=== PATIENT | male | born 1955 | race African-American/Black ===

== ENCOUNTER 2023-08-20 12:49 | Outpatient (AMB) | payer MEDICARE, MEDICAID, SELFPAY ==
--- NOTE | 2023-08-20 12:51 | A.OFFPC_ITS ---
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 Transferring care from Dr NATE Morales ([facility]). Medical records have not been requested and have not received. Online Content Editor Required: No Steam Meter Reader: Not Required per policy Accompanied by: Self / Same As Patient Allergies No Known Allergies Allergy (Verified 08/20/23 13:10) Medication List - Last Reconciled 08/20/23 by JAMES Joshua loratadine 5 mg PO DAILY Tobacco use date assessed: 08/20/23 Fall risk assessment: No Falls in past year Last assessed Fall Risk: 08/20/23 Dental Screening Dental Screen Date: 08/20/23 Did you have a dental visit in the last 12 months?: No Did you have a dental problem in the last 6 months where you did not have access to dental care?: No Was dental information given to patient?: No HPI HPI Comments History of Present Illness Details 68-year-old male new patient presents to day to establish care. Patient reports chronic low back pain x 3 years. Patient states 3 years ago he was trying to pick his mother up off the floor any at her dad's back and he has been having chronic pain ever since. Patient reports 8/10 chronic lumbar back pain. States previous PCP had him on oxycodone 5 mg tablets TID, last prescribed over 3 years ago. Patient states Advil does not work. Patient also reports bilateral hand pain in his joints, unable to make fists and has difficulty grasping things. Lastly patient reports bilateral foot numbness ongoing x6 months. Denies any recent lab work. Dr. Morales; Protection previous pcp last seen 3 years ago. [facility] Surgical History (Updated 08/20/23 @ 13:05 by ETHAN Estrada) History of knee surgery Family History (Updated 08/20/23 @ 13:14 by JAMES Joshua) Mother Cancer Social History (Updated 08/20/23 @ 13:15 by JAMES Joshua) Housing: Apartment Alcohol intake: current Alcohol intake frequency: a few times a week Alcohol type: beer Patient Tobacco Use Status: Current everyday Tobacco user Tobacco use type: Cigar Cigarettes Per Day: 3 e-Cigarette/Vaping Use: Never Used Second Hand Smoke Exposure: Yes Substance Use Type: Marijuana service: No Current occupational status: disabled Cognitive needs: No Hearing needs: No Vision needs: Yes (Readers) Questionnaire PHQ-9 Over the last 2 weeks, how often have you been bothered by any of the following problems? 1. Little interest or pleasure in doing things: not at all 2. Feeling down, depressed, or hopeless: not at all 3. Trouble falling or staying asleep, or sleeping too much: not at all 4. Feeling tired or having little energy: not at all 5. Poor appetite or overeating: not at all 6. Feeling bad about yourself - or that you are a failure or have let yourself or your family down: not at all 7. Trouble concentrating on things, such as reading the newspaper or watching television: not at all 8. Moving or speaking so slowly that other people could have noticed. Or the opposite - being so fidgety or restless that you have been moving around a lot more than usual: not at all 9. Thoughts that you would be better off or of hurting yourself in some way: not at all Total score: 0 Depression Screening Interpretation: Negative Depression Screening Done: Yes 62058 - PHQ-9 Billing: Yes Source: Developed by Drs. Denilson Mathews, Malika Dickens, René Reis and colleagues, with an educational mar from [employer]. Thrive Questionnaire Date Thrive assessed: 08/20/23 I am a: Patient What is your living situation today?: I have a steady place to live Within the past 12 months, did the food you bought not last and you didn't have the money to get more?: Never true Within the past 12 months, did you worry whether your food would run out before you got money to buy more?: Never true Do you have trouble paying for medicines?: No Do you have trouble getting transportation to medical appointments?: No Do you have trouble paying your heating and electricity bill?: Yes Do you have trouble taking care of your child, family member or friend?: No Do you have trouble with day-to-day activities such as bathing, preparing meals, shopping, managing finances, etc.?: No Are you currently unemployed and looking for a job?: No Are you interested in more education?: No Currently or been in a relationship where the following occur: no concerns reported AUDIT C Alcohol Use Questionnaire (AUDIT-C) 1. How often do you have a drink containing alcohol?: Never Total Score: 0 KEYUR-7 AMB Questionnaire KEYUR-7 Date KEYUR - 7 assessed: 08/20/23 Feeling nervous, anxious, or on edge: 0 = Not at all Not being able to stop or control worryin = Not at all Worrying too much about different things: 0 = Not at all Trouble relaxin = Not at all Being so restless that it is hard to sit still: 0 = Not at all Becoming easily annoyed or irritable: 0 = Not at all Feeling afraid as if something awful might happen: 0 = Not at all Total KEYUR-7 score (0-4 normal; 5-9 mild; 10-14 moderate; 15-21 severe): 0 Source: Developed by Drs. Denilson Mathews, Malika Dickens, René Reis and colleagues, with an educational mar from [employer]. KEYUR-7 Assessment Billing KEYUR-7 Assessment Tool: KEYUR-7 Assessment 11831 Review of Systems Const Denies chills, Denies fatigue, Denies fever(s) and Denies poor appetite Eyes Denies no additional complaints ENT Reports Normal hearing present Card Denies chest pain, Denies syncope, Denies rapid heart rate and Denies dyspnea Resp Denies cough and Denies dyspnea GI Denies change in stool character, Denies constipation, Denies diarrhea, Denies nausea and Denies vomiting Denies dysuria, Denies urinary frequency and Denies urinary urgency Musc Reports back pain and Reports numbness (Bilateral feet) Neuro Reports Normal hearing present, Denies confusion, Denies syncope and Reports numbness (Bilateral feet) Psych Denies confusion Endo Denies fatigue Physical exam (Primary Care) Vital Signs: Last Vital Signs Pulse 63 08/20/23 12:53 BP 118/74 08/20/23 12:53 Pulse Ox 99 08/20/23 12:53 Oxygen Delivery Method Room Air 08/20/23 12:53 BMI result Body Mass Index 21.8 Tobacco/Smoking Status: Tobacco use Status Tobacco use date assessed 08/20/23 08/20/23 13:08 Patient Tobacco Use Status Current everyday Tobacco 08/20/23 13:15 Tobacco use type Cigar 08/20/23 13:15 e-Cigarette/Vaping Use Never Used 08/20/23 13:15 PHQ-9: PHQ-9 Score PHQ-9: Total score 0 08/20/23 13:18 Depression Screening Interpretation: Negative Thrive Assessment: Date of Thrive Assessment Date Thrive assessed 08/20/23 08/20/23 13:08 Currently or been in a relationship where the following occur: no concerns reported Const General: No confusion Orientation/consciousness: No confusion Neuro General: No confusion Cranial nerves: Yes Normal hearing present Assessment and Plan Assessment & Plan (1) Pain in both hands: Code(s): M79.641 - Pain in right hand; M79.642 - Pain in left hand Plan: Given patient experiencing bilateral and pain specifically in the joints of the hand will draw CRP, ESR rheumatoid factor and SANTANA to further evaluate for autoimmune cause. (2) Numbness and tingling of both feet: Code(s): R20.0 - Anesthesia of skin; R20.2 - Paresthesia of skin Plan: Will draw fasting glucose and hemoglobin A1c to further evaluate for diabetes (3) Chronic low back pain: Code(s): M54.50 - Low back pain, unspecified; G89.29 - Other chronic pain Plan: Patient made aware we will not be initiating patient on narcotic treatmet, ibuprofen 600 mg sent to patient's pharmacy patient advised to take medication with food to prevent GI upset, Lidoderm patches sent as well. Lumbar spine x-ray ordered and referral entered to pain management. Plan Follow-up in 4 months for physical exam Orders: Orders Comprehensive [place]. Panel Fast Today R20.0 - Anesthesia of skin, R20.2 - Paresthesia of skin C Reactive Protein Today M79.641 - Pain in right hand, M79.642 - Pain in left hand TSH reflex Free T4 Today Z13.29 - Encounter for screening for other suspected endocrine disorder Rheumatoid Factor Today M79.641 - Pain in right hand, M79.642 - Pain in left hand XR lumbar spine 2-3V Today G89.29 - Other chronic pain, M54.50 - Low back pain, unspecified SANTANA Reflex Titer and Pattern Today M25.50 - Pain in unspecified joint, M79.641 - Pain in right hand, M79.642 - Pain in left hand Complete Blood Count Auto Diff Today Z13.0 - Encounter for screening for diseases of the blood and blood-forming organs and certain disorders involving the immune mechanism Lipid Panel Today Z13.220 - Encounter for screening for lipoid disorders Erythrocyte Sedimentation Rate Today M79.641 - Pain in right hand, M79.642 - Pain in left hand Hemoglobin A1c Today R20.0 - Anesthesia of skin, R20.2 - Paresthesia of skin Referrals Pain Management Referral G89.29 - Other chronic pain, M54.50 - Low back pain, unspecified Medications: New ibuprofen 600 mg PO Q8H PRN 30 tabs 0RF pain G89.29 - Other chronic pain, M54.50 - Low back pain, unspecified lidocaine 5% (Lidoderm) leave on most painful area for up to 12 hrs 1 patch topical DAILY 15 ea 0RF Coding Level of Care Code New Pt Level 4 (19526) Diagnoses Pain in both hands M79.641; M79.642 Numbness and tingling of both feet R20.0; R20.2 Chronic low back pain M54.50; G89.29 Additional Codes KEYUR-7 Assessment Billing - KEYUR-7 Assessment Tool: KEYUR-7 Assessment 05615 ([id number])
[2023-08-20 12:53] VITALS: BP 118/74; PULSE 63; O2SAT 99; BMI 21.8
== END 2023-08-20 13:26 | disposition home or self-care (01) ==
PROVIDERS: Visit Provider Nurse Practitioner Family
DX: M79.641 Pain in right hand (principal); M79.642 Pain in left hand; R20.0 Anesthesia of skin; R20.2 Paresthesia of skin; M54.50 Low back pain, unspecified; G89.29 Other chronic pain
CPT/HCPCS: 99204

== ENCOUNTER 2023-12-22 13:17 | Outpatient (REF) | payer MEDICARE, MEDICAID, SELFPAY ==
[2023-12-22 13:42] LABS: MANUAL DIFF FLAG NO
[2023-12-22 14:21] LABS: Basophils Absolute Auto 0.1 X10*3/uL (0.0-0.2); Eosinophils Absolute Auto 0.2 X10*3/uL (0.0-0.4); Eosinophils Percent Auto 3.9 % (0-4); Hematocrit 39.4 % (42.0-52.0); Hemoglobin 14.1 g/dl (14.0-18.0); Imm Gran Abs Auto 0.01 X10*3/uL (0.00-0.03); Imm Gran Pct Auto 0.2 % (0.0-0.4); Lymphocytes Absolute Auto 2.5 X10*3/uL (1.2-4.9); Lymphocytes Percent Auto 41.6 % (20-40); Mean Corpuscular HGB Conc 35.8 g/dl (31.0-36.0); Mean Corpuscular Hemoglobin 27.7 pg (27.0-33.0); Mean Corpuscular Volume 77.4 fL (80.0-98.0); Mean Platelet Volume 8.9 fL (9.4-12.4); Monocytes Absolute Auto 0.6 X10*3/uL (0.1-1.2); Monocytes Percent Auto 10.9 % (2-11); Neutrophils Absolute Auto 2.4 x10*3/uL (2.0-8.3); Neutrophils Percent Auto 41.4 % (45-73); Platelet Count 295 X10*3/uL (160-400); Red Blood Count 5.09 X10*6/uL (4.60-5.80); Red Cell Distribution Width 17.5 % (11.0-16.0); White Blood Count 5.9 X10*3/uL (4.8-10.8)
[2023-12-22 15:28] LABS: Alanine Aminotransferase 16 U/L (0-40); Albumin Level 4.2 g/dL (3.5-5.0); Alkaline Phosphatase 72 U/L (39-117); Anion Gap 12 (12-20); Aspartate Amino Transferase 14 U/L (5-37); Bilirubin Total 0.6 mg/dL (0.0-1.0); Blood Urea Nitrogen 16 mg/dL (9-16); Calcium 8.9 mg/dL (8.4-10.2); Carbon Dioxide 24 mmol/L (22-29); Chloride 107 mmol/L (96-108); Estimated Glomerular Filt Rate 49; Glucose Random 73 mg/dL (60-115); Potassium 4.5 mmol/L (3.3-5.1); Sodium 138 mmol/L (135-145); Total Protein 7.7 g/dL (6.5-8.0)
== END 2023-12-22 13:18 | disposition home or self-care (01) ==
LOC: HO.LAB 13:17
PROVIDERS: Absent Provider Nurse Practitioner Family; Visit Provider Internal Medicine
DX: Z01.818 Encounter for other preprocedural examination (principal); D64.9 Anemia, unspecified
CPT/HCPCS: 36415; 80053; 85025

== ENCOUNTER 2024-03-14 14:55 | Outpatient (AMB) | payer MEDICARE, MEDICAID, SELFPAY ==
--- NOTE | 2024-03-14 14:57 | MHC.PC.OV ---
Vital Signs 03/14/24 15:00 Height 5 ft 8 in Weight 146 lb 8 oz BMI 22.3 BP 100/66 Blood Pressure Location Lt brachial Position Sitting Pulse 65 Pulse Source Pulse Oximeter Pulse Oximetry (%) 98 Oxygen Delivery Method Room Air Intake Visit Reasons: annual exam Intake Note: Patient is here today for a physical. Bomb Technician Required: No Engineering Librarian: Not Required per policy Accompanied by: Self / Same As Patient Allergies No Known Allergies Allergy (Verified 03/14/24 15:25) Medication List - Last Reconciled 03/14/24 by Rafael Viera MD ibuprofen 600 mg PO Q8H PRN lidocaine 5% (Lidoderm) 1 patch topical DAILY loratadine 5 mg PO DAILY Tobacco use date assessed: 03/14/24 Fall risk assessment: No Falls in past year Last assessed Fall Risk: 03/14/24 Dental Screening Dental Screen Date: 03/14/24 Did you have a dental visit in the last 12 months?: No Did you have a dental problem in the last 6 months where you did not have access to dental care?: No Was dental information given to patient?: No HPI annual exam HPI Details Patient comes in today for his annual physical examination States that he continues to experience increased pain over his lower back - has chronic low back pain - and needs his Ibuprofen as well as his Loratadine Rx refilled He was previously referred to pain management for his low back pain but his referral ended up getting cancelled as it was notated that there were several attempts made to reach out to patient then unsuccessfully Patient states that he does not recall ever getting called up and states that the phone number listed in his record is his house phone and is active and current Would like to have pain management referral done again States that he feels okay otherwise He denies any headaches or dizziness Denies any chest pains, no increased SOB No nausea/vomiting, no abdominal pain No change in bowel habits noted He denies any acute urinary symptoms He did have some labs done back in December 2023 but these were non-fasting labs and are only partial labs States that he has never had a screening colonoscopy done by choice and his stance has not changed on this - he declines referral for a screening colonoscopy but is agreeable to getting Cologuard testing done [facility] Medical History (Updated 03/14/24 @ 16:46 by Rafael Viera MD) Chronic kidney disease, stage III (moderate) Allergic rhinitis Smoker Colonoscopy refused Insomnia Chronic low back pain Surgical History History of knee surgery Family History Mother Cancer Social History Housing: Apartment Alcohol intake: current Alcohol intake frequency: a few times a week Alcohol type: beer Patient Tobacco Use Status: Current everyday Tobacco user Tobacco use type: Cigar Cigarettes Per Day: 4 e-Cigarette/Vaping Use: Never Used Second Hand Smoke Exposure: Yes Substance Use Type: Marijuana service: No Current occupational status: disabled Cognitive needs: No Hearing needs: No Vision needs: Yes (Readers) Questionnaire PHQ-9 Over the last 2 weeks, how often have you been bothered by any of the following problems? 1. Little interest or pleasure in doing things: several days 2. Feeling down, depressed, or hopeless: more than half the days 3. Trouble falling or staying asleep, or sleeping too much: nearly every day 4. Feeling tired or having little energy: nearly every day 5. Poor appetite or overeating: several days 6. Feeling bad about yourself - or that you are a failure or have let yourself or your family down: several days 7. Trouble concentrating on things, such as reading the newspaper or watching television: not at all 8. Moving or speaking so slowly that other people could have noticed. Or the opposite - being so fidgety or restless that you have been moving around a lot more than usual: not at all 9. Thoughts that you would be better off or of hurting yourself in some way: not at all Total score: 11 Depression Screening Interpretation: Positive Depression Screening Follow-up: Existing condition and Declines treatment Depression Screening Done: Yes 51088 - PHQ-9 Billing: Yes Source: Developed by Drs. Denilson Mathews, Malika Dickens, René Reis and colleagues, with an educational mar from [employer]. Thrive Questionnaire Date Thrive assessed: 03/14/24 I am a: Patient What is your living situation today?: I have a steady place to live Within the past 12 months, did the food you bought not last and you didn't have the money to get more?: Never true Within the past 12 months, did you worry whether your food would run out before you got money to buy more?: Never true Do you have trouble paying for medicines?: No Do you have trouble getting transportation to medical appointments?: No Do you have trouble paying your heating and electricity bill?: No Do you have trouble taking care of your child, family member or friend?: No Do you have trouble with day-to-day activities such as bathing, preparing meals, shopping, managing finances, etc.?: No Are you currently unemployed and looking for a job?: No Are you interested in more education?: No Currently or been in a relationship where the following occur: No concerns reported THRIVE Score: 0 AUDIT C Alcohol Use Questionnaire (AUDIT-C) 1. How often do you have a drink containing alcohol?: 2-3 times a week 2. How many drinks containing alcohol do you have on a typical day when you are drinking?: 1 or 2 3. How often do you have six or more drinks on one occasion?: Never Total Score: 3 Score Reviewed/Action Taken: Yes KEYUR-7 AMB Questionnaire KEYUR-7 Date KEYUR - 7 assessed: 03/14/24 Feeling nervous, anxious, or on edge: 3 = Nearly every day Not being able to stop or control worryin = Several days Worrying too much about different things: 1 = Several days Trouble relaxin = Not at all Being so restless that it is hard to sit still: 0 = Not at all Becoming easily annoyed or irritable: 0 = Not at all Feeling afraid as if something awful might happen: 0 = Not at all Total KEYUR-7 score (0-4 normal; 5-9 mild; 10-14 moderate; 15-21 severe): 5 Source: Developed by Drs. Denilson Mathews, Malika Dickens, René Reis and colleagues, with an educational mar from [employer]. Review of Systems Const Denies chills, Reports difficulty sleeping, Denies fatigue, Denies fever(s), Denies headache(s), Denies malaise and Denies weakness Eyes Denies blurry vision, Denies change in vision, Denies irritation and Denies itchy eyes ENT Denies dysphagia, Denies dizziness, Denies otalgia, Denies headache(s), Denies nasal congestion, Denies neck pain, Denies odynophagia and Denies sore throat Card Denies chest pain, Denies rapid heart rate, Denies irregular heart rhythm, Denies palpitations and Denies dyspnea Resp Denies chest congestion, Denies cough, Denies dyspnea and Denies wheezing GI Denies abdominal pain, Denies bloating, Denies constipation, Denies dysphagia, Denies heartburn, Denies diarrhea, Denies nausea, Denies odynophagia and Denies vomiting Denies hematuria, Denies difficulty urinating, Denies dysuria, Denies urinary frequency and Denies urinary urgency Musc Reports back pain (over the lower back - chronic), Denies arthralgias, Denies joint swelling, Denies muscle weakness and Denies neck pain Skin/Breast Denies change in pigmentation, Denies lesions, Denies rash and Denies unusual bruising Neuro Denies dizziness, Denies headache(s), Denies paresthesias and Denies weakness Endo Denies fatigue and Denies palpitations Aller/Immun Denies itchy eyes and Denies wheezing Physical exam (Primary Care) Vital Signs: Last Vital Signs Pulse 65 03/14/24 15:00 BP 100/66 03/14/24 15:00 Pulse Ox 98 03/14/24 15:00 Oxygen Delivery Method Room Air 03/14/24 15:00 BMI result Body Mass Index 22.3 Tobacco/Smoking Status: Tobacco use Status Tobacco use date assessed 03/14/24 03/14/24 15:02 Patient Tobacco Use Status Current everyday Tobacco 03/14/24 15:03 Tobacco use type Cigar 03/14/24 15:03 e-Cigarette/Vaping Use Never Used 03/14/24 15:03 PHQ-9: PHQ-9 Score PHQ-9: Total score 11 03/14/24 15:07 Depression Screening Interpretation: Positive Depression Screening Follow-up: Existing condition and Declines treatment Thrive Assessment: Date of Thrive Assessment Date Thrive assessed 03/14/24 03/14/24 15:02 Currently or been in a relationship where the following occur: No concerns reported Const General: no acute distress, alert and awake Orientation/consciousness: patient oriented x3 HENMT Head: Yes normocephalic and Yes atraumatic Ears: external ears normal, TM's normal bilaterally and EAC's normal General nose exam: No nasal discharge present Face and sinus: Yes normal facial exam and Yes sinuses nontender Teeth and gingiva: dentition normal Throat: Yes posterior oropharynx normal and Yes tonsils normal (no TP congestion) Eyes Eyelids: Yes eyelids normal Conjunctivae: conjunctivae normal Pupils: Equal, round and reactive pupils present EOM: EOMs intact bilaterally Neck Neck: Yes no lymphadenopathy and Yes supple Thyroid: Thyroid normal Resp Auscultation: clear to auscultation bilaterally, no rales and no wheezes Cardio Rate: regular rate Rhythm: regular rhythm Heart sounds: no murmurs GI Palpation (GI): Soft to palpation, nontender and No hepatosplenomegaly present Auscultation: normal bowel sounds General: Yes no CVA tenderness Back/Spine/Pelvis Back: no CVA tenderness Thoracic/Lumbar Spine: lumbar spinal tenderness Skin Lesions: no lesions Rashes: no rashes Neuro General: patient oriented x3, moves all extremities, no focal motor deficits and CN's II-XI intact bilaterally Cranial nerves: Yes Equal, round and reactive pupils present Cognition (Neuro): normal cognition Gait exam (Neuro): Normal gait present Extrem General: Yes no clubbing, cyanosis or edema Results Reviewed Results Reviewed: Laboratory Tests 12/22/23 13:40 WBC 5.9 Hgb 14.1 Hct 39.4 L Plt Count 295 Sodium 138 Potassium 4.5 Creatinine 1.45 H Estimated GFR 49 Random Glucose 73 Calcium 8.9 AST 14 ALT 16 Assessment and Plan Assessment & Plan (1) Annual physical exam: Code(s): Z00.00 - Encounter for general adult medical examination without abnormal findings Plan: Results of his labs done back in December 2023 reviewed and discussed with patient Will send him for some additional labs for further evaluation, including his fasting lipids, TSH and PSA levels as well as a urinalysis, to complete his evaluation He has never had a screening colonoscopy done in the past (by personal choice) (2) Chronic kidney disease, stage III (moderate): Code(s): N18.30 - Chronic kidney disease, stage 3 unspecified Qualifiers: Chronic kidney disease stage 3 subtype: stage 3a (GFR 45-59) Qualified Code(s): N18.31 - Chronic kidney disease, stage 3a Plan: Have advised patient that his renal function appears to be somewhat compromised on his recent labs - is not sure if this is acute or chronic (likely chronic) as we have no previous numbers to compare them with Will recheck his complete chem profile and if his numbers are consistent, may consider sending him for a renal US for further evaluation (3) Chronic low back pain: Code(s): M54.50 - Low back pain, unspecified; G89.29 - Other chronic pain Qualifiers: Back pain laterality: midline Sciatica presence: without sciatica Qualified Code(s): M54.50 - Low back pain, unspecified; G89.29 - Other chronic pain Plan: Patient reports (+) hx of chronic low back pain for years and that his previous PCP was managing his pain with Oxycodone He has been advised at his first visit here late last year that we will not be prescribing opioids for his chronic pain He was referred to pain management then but order was subsequently cancelled (see HPI); patient is interested in pursuing pain management referral again - referral is redone Reinforced activity and weight-lifting restrictions Will have him go get repeat lumbar spine x-rays as well for further evaluation (4) Allergic rhinitis: Code(s): J30.9 - Allergic rhinitis, unspecified Qualifiers: Allergic rhinitis trigger: unspecified Allergic rhinitis seasonality: unspecified Qualified Code(s): J30.9 - Allergic rhinitis, unspecified Plan: Continue Loratadine 5 mg QD PRN - Rx refilled (5) Insomnia: Code(s): G47.00 - Insomnia, unspecified Qualifiers: Insomnia type: unspecified Qualified Code(s): G47.00 - Insomnia, unspecified Plan: Sleep hygiene discussed Will start patient on a trial of Trazodone 50 mg Q HS PRN (6) Smoker: Code(s): F17.200 - Nicotine dependence, unspecified, uncomplicated Plan: Counseled on smoking cessation Will also consider referring him for CT lung screening as well later on (7) Colon cancer screening: Code(s): Z12.11 - Encounter for screening for malignant neoplasm of colon Plan: Patient continues to decline referral for a screening colonoscopy but is agreeable to getting Cologuard testing done if it is covered by his insurance - Cologuard ordered Plan Follow up in 6 months Orders: Orders TSH reflex Free T4 Today E78.00 - Pure hypercholesterolemia, unspecified, Z00.00 - Encounter for general adult medical examination without abnormal findings UA CC w/rflx Micro + Cult Today R30.0 - Dysuria, Z00.00 - Encounter for general adult medical examination without abnormal findings Prostate Specific Antigen Today N40.0 - Benign prostatic hyperplasia without lower urinary tract symptoms, Z00.00 - Encounter for general adult medical examination without abnormal findings Complete Blood Count Auto Diff Today D64.9 - Anemia, unspecified, Z00.00 - Encounter for general adult medical examination without abnormal findings Comprehensive [place]. Panel Fast Today E78.00 - Pure hypercholesterolemia, unspecified, Z00.00 - Encounter for general adult medical examination without abnormal findings Lipid Panel Today E78.00 - Pure hypercholesterolemia, unspecified, Z00.00 - Encounter for general adult medical examination without abnormal findings XR lumbar spine 2-3V Today M54.50 - Low back pain, unspecified Referrals Cologuard Test Z12.11 - Encounter for screening for malignant neoplasm of colon, Z12.12 - Encounter for screening for malignant neoplasm of rectum Pain Management Referral M54.50 - Low back pain, unspecified Medications: New trazodone 50 mg PO BEDTIME 30 days PRN 30 tabs 3RF insomnia Changed From loratadine 5 mg PO DAILY To loratadine 5 mg PO DAILY 90 days PRN 90 tabs 1RF allergy symptoms From ibuprofen 600 mg PO Q8H PRN 30 tabs 0RF pain G89.29 - Other chronic pain, M54.50 - Low back pain, unspecified To ibuprofen Take with food and only as needed 600 mg PO Q8H 30 days PRN 90 tabs 1RF pain G89.29 - Other chronic pain, M54.50 - Low back pain, unspecified Review Patient declined Colonoscopy: 03/14/24 Coding Level of Care Code Est Pt Prev Care >65y(06099) Diagnoses Annual physical exam Z00.00 Stage 3a chronic kidney disease N18.31 Chronic kidney disease stage 3 subtype: stage 3a (GFR 45-59) Chronic midline low back pain without sciatica M54.50; G89.29 Back pain laterality: midline Sciatica presence: without sciatica Allergic rhinitis, unspecified seasonality, unspecified trigger J30.9 Allergic rhinitis trigger: unspecified Allergic rhinitis seasonality: unspecified Insomnia, unspecified type G47.00 Insomnia type: unspecified Smoker F17.200 Colon cancer screening Z12.11
[2024-03-14 15:00] VITALS: BP 100/66; PULSE 65; O2SAT 98; BMI 22.3
== END 2024-03-14 15:38 | disposition home or self-care (01) ==
PROVIDERS: PCP Internal Medicine; Visit Provider Internal Medicine
DX: Z00.00 Encounter for general adult medical examination without abnormal findings (principal); N18.31 Chronic kidney disease, stage 3a; M54.50 Low back pain, unspecified; G89.29 Other chronic pain; J30.9 Allergic rhinitis, unspecified; G47.00 Insomnia, unspecified; F17.200 Nicotine dependence, unspecified, uncomplicated; Z12.11 Encounter for screening for malignant neoplasm of colon
CPT/HCPCS: 99397

== ENCOUNTER 2024-05-05 14:16 | Outpatient (AMB) | payer MEDICARE, MEDICAID, SELFPAY ==
--- NOTE | 2024-05-05 14:30 | MHC.PC.OV ---
Vital Signs 05/05/24 14:31 Height 5 ft 8 in Weight 150 lb BMI 22.8 BP 122/66 Blood Pressure Location Lt brachial Position Sitting Pulse 55 Pulse Source Pulse Oximeter Pulse Oximetry (%) 96 Oxygen Delivery Method Room Air Intake Visit Reasons: [place] eye left eye rt eye May Finishing Room Operator Required: No Accompanied by: Self / Same As Patient Allergies No Known Allergies Allergy (Verified 05/05/24 14:46) Medication List - Last Reconciled 05/05/24 by Joann Lam PA-C ibuprofen 600 mg PO Q8H PRN 30 days lidocaine 5% (Lidoderm) 1 patch topical DAILY trazodone 50 mg PO BEDTIME PRN 30 days Tobacco use date assessed: 03/14/24 Fall risk assessment: No Falls in past year Last assessed Fall Risk: 05/05/24 Dental Screening Dental Screen Date: 03/14/24 HPI [place] eye left eye rt eye May HPI Details 68-year-old male with past medical history of CKD stage 3 and chronic low back pain last seen by Dr. Viera coming in for preoperative appointment.?? No history of RI, CVA, CHF, or diabetes mellitus.? Patient is not on any anticoagulants or antiplatelet agents. Patient was no major comorbidities and chronic kidney disease is stable. He does have concern for numbness and tingling in his hands but otherwise has no other acute problems. [facility] Medical History Chronic kidney disease, stage III (moderate) Allergic rhinitis Smoker Colonoscopy refused Insomnia Chronic low back pain Surgical History History of knee surgery Family History Mother Cancer Social History Housing: Apartment Alcohol intake: current Alcohol intake frequency: a few times a week Alcohol type: beer Patient Tobacco Use Status: Current everyday Tobacco user Tobacco use type: Cigar Cigarettes Per Day: 4 e-Cigarette/Vaping Use: Never Used Second Hand Smoke Exposure: Yes Substance Use Type: Marijuana service: No Current occupational status: disabled Cognitive needs: No Hearing needs: No Vision needs: Yes (Readers) Questionnaire PHQ-9 Over the last 2 weeks, how often have you been bothered by any of the following problems? 1. Little interest or pleasure in doing things: several days 2. Feeling down, depressed, or hopeless: more than half the days 3. Trouble falling or staying asleep, or sleeping too much: nearly every day 4. Feeling tired or having little energy: nearly every day 5. Poor appetite or overeating: several days 6. Feeling bad about yourself - or that you are a failure or have let yourself or your family down: several days 7. Trouble concentrating on things, such as reading the newspaper or watching television: not at all 8. Moving or speaking so slowly that other people could have noticed. Or the opposite - being so fidgety or restless that you have been moving around a lot more than usual: not at all 9. Thoughts that you would be better off or of hurting yourself in some way: not at all Total score: 11 Depression Screening Interpretation: Positive Depression Screening Follow-up: Existing condition and Declines treatment Depression Screening Done: Yes 52497 - PHQ-9 Billing: Yes Source: Developed by Drs. Denilson Mathews, Malika Dickens, René Reis and colleagues, with an educational mar from [employer]. Thrive Questionnaire Date Thrive assessed: 03/14/24 AUDIT C Alcohol Use Questionnaire (AUDIT-C) 1. How often do you have a drink containing alcohol?: 2-3 times a week 2. How many drinks containing alcohol do you have on a typical day when you are drinking?: 1 or 2 3. How often do you have six or more drinks on one occasion?: Never Total Score: 3 Score Reviewed/Action Taken: Yes KEYUR-7 AMB Questionnaire KEYUR-7 Date KEYUR - 7 assessed: 03/14/24 Source: Developed by Drs. Denilson Mathews, René Schneider and colleagues, with an educational mar from [employer]. Review of Systems Const Denies body aches, Denies fatigue, Denies fever(s), Denies frequent falls, Denies headache(s) and Denies weakness Eyes Reports no additional complaints and Denies change in vision ENT Denies dysphagia, Denies dizziness, Denies facial pain, Denies headache(s), Denies nasal congestion and Denies odynophagia Card Denies chest pain, Denies syncope, Denies irregular heart rhythm, Denies leg edema, Denies lightheadedness and Denies dyspnea Resp Denies cough and Denies dyspnea GI Denies constipation, Denies dysphagia, Denies dyspepsia, Denies diarrhea, Denies nausea, Denies odynophagia and Denies vomiting Denies dysuria, Denies urinary frequency, Denies urinary hesitancy and Denies urinary urgency Musc Denies back pain and Denies myalgias Skin/Breast Reports system reviewed and no additional complaints, except as documented Neuro Details: Numbness and tingling in bilateral hands Denies dizziness, Denies syncope, Denies frequent falls, Denies headache(s) and Denies weakness Psych Reports no additional complaints Endo Denies fatigue Physical exam (Primary Care) Vital Signs: Last Vital Signs Pulse 55 05/05/24 14:31 BP 122/66 05/05/24 14:31 Pulse Ox 96 05/05/24 14:31 Oxygen Delivery Method Room Air 05/05/24 14:31 BMI result Body Mass Index 22.8 Tobacco/Smoking Status: Tobacco use Status Tobacco use date assessed 03/14/24 05/05/24 14:31 Patient Tobacco Use Status Current everyday Tobacco 05/05/24 14:31 Tobacco use type Cigar 05/05/24 14:31 e-Cigarette/Vaping Use Never Used 05/05/24 14:31 PHQ-9: PHQ-9 Score PHQ-9: Total score 11 05/05/24 14:35 Depression Screening Interpretation: Positive Depression Screening Follow-up: Existing condition and Declines treatment Thrive Assessment: Date of Thrive Assessment Date Thrive assessed 03/14/24 05/05/24 14:31 Const General: cooperative, healthy appearing, comfortable and no acute distress Orientation/consciousness: patient oriented x3 HENMT Head: Yes normocephalic Ears: hearing grossly normal bilaterally General nose exam: Normal external nose present Eyes General: appearance normal, both eyes and all related structures Conjunctivae: conjunctivae normal Neck Neck: Yes full ROM and Yes no lymphadenopathy Resp Effort & Inspection: normal respiratory effort Auscultation: clear to auscultation bilaterally, no crackles, no rales, no rhonchi and no wheezes Cardio Rate: regular rate Rhythm: regular rhythm GI Palpation (GI): Soft to palpation, not firm, nontender, no guarding and not rigid Skin General skin exam: no rashes or lesions noted Neuro General: patient oriented x3 Gait exam (Neuro): Normal gait present Extrem General: Yes normal to inspection, Yes full ROM and No edema Psych Affect: normal affect Attitude: cooperative Insight: Good insight present (Psych) Judgement: Good judgement present (Psych) Assessment and Plan Assessment & Plan (1) Numbness in both hands: Code(s): R20.0 - Anesthesia of skin Plan: Patient has had numbness and tingling in the hands for several years. We will order for EMG for evaluation in bilateral hands. (2) Pre-op evaluation: Code(s): Z01.818 - Encounter for other preprocedural examination Plan: Regarding preop clearance, the patient is at moderate risk for proposed surgery due to age.? Reviewed with the patient that no surgery is completely free of risk and that this examination is to assist the surgeon in reviewing informed consent. Patient has no major comorbidities. Patient is not currently on any blood thinners, NSAIDs, or antiplatelet medications. Advised patient to discontinue any NSAIDs 7 days prior to surgery. He may use Tylenol as needed for pain All questions were answered. Plan This note was constructed using voice recognition software. While every effort has been made to ensure accuracy and jacquard loom heddles tier, still areas may have been included sometimes these areas may affect the content or meeting of the given symptoms. Total time spent caring for the patient today was 30 minutes. This includes time spent before the visit reviewing the chart, time spent during the visit, and time spent after the visit and documentation. Orders: Orders NE electromyogram (EMG) Today R20.0 - Anesthesia of skin Medications: New lidocaine 5% leave on most painful area for up to 12 hrs 1 patch topical DAILY 15 ea 2RF Discontinued lidocaine 5% (Lidoderm) leave on most painful area for up to 12 hrs Discontinued Reason: Ancillary Entered New Order 1 patch topical DAILY 15 ea 0RF Coding Level of Care Code Est Pt Level 4 (43704) Diagnoses Numbness in both hands R20.0 Pre-op evaluation Z01.813
[2024-05-05 14:31] VITALS: BP 122/66; PULSE 55; O2SAT 96; BMI 22.8
== END 2024-05-05 15:23 | disposition home or self-care (01) ==
PROVIDERS: PCP Internal Medicine
DX: R20.0 Anesthesia of skin (principal); Z01.818 Encounter for other preprocedural examination
CPT/HCPCS: 99214